=== PATIENT | male | born 1975 | race Caucasian/White ===

== ENCOUNTER 2016-11-10 13:30 | Emergency (ER) | payer MEDICAID ==
[~2016-11-10] VITALS: Ht 170.2 cm; Wt 105.0 kg
[~2016-11-10 13:30] MED LIST: ALBUAER3 INH; PROMSYP3 PO; WHEEMIS3
[2016-11-10 13:40] VITALS: BP 138/85; PULSE 92; RESP 16; TEMP 98; O2SAT 98
[2016-11-10] MEDS ORDERED: XANA2TAB2 PO (14:03)
--- NOTE | 2016-11-10 14:26 | PD ---
HPI Chief Complaint: Fall Time Seen by Provider: 14:10 Travel History International Travel<30 days: No Contact w/Intl Traveler<30days: No Traveled to known affect area: No History of Present Illness HPI This patient had a fall last night at 9 PM. He was trying to step over his dog and tripped and fell. He hit the back of his head but he denies head or neck pain. No LOC. Takes no blood thinners. He complains of injury to his right buttock as well as his left ankle and right foot. His ankle and foot are swollen and he is worse with weightbearing. Duration 17 hours. Symptoms severity is moderate. No alleviating factors PFSH Past Medical History Bipolar Disorder: Yes Influenza Vaccination: No Past Surgical History Surgical History: No Previous Surgery Social History Alcohol Use: No Tobacco Use: Yes (occasional cigars ) Substance Use: No Allergies-Medications (Allergen,Severity, Reaction): Coded Allergies: No Known Allergies (Unverified , 10/05/16) Reported Meds & Prescriptions Reported Meds & Active Scripts Active Walker/Adult/Folding (Device) 1 Mis Mis 1 Ea .ROUTE DIRECTED Percocet (Oxycodone-Acetaminophen) 5-325 mg Tab 1 Tab PO Q6H PRN Reported Xanax (Alprazolam) 2 Mg Tab 2 Mg PO Q8H PRN Review of Systems General / Constitutional: No: Fever Eyes: No: Visual changes HENT: No: Headaches Cardiovascular: No: Chest Pain or Discomfort Respiratory: No: Shortness of Breath Gastrointestinal: No: Abdominal Pain Genitourinary: No: Dysuria Musculoskeletal: Positive: Pain Skin: No Rash Neurologic: No: Weakness Psychiatric: No: Depression Endocrine: No: Polydipsia Hematologic/Lymphatic: No: Easy Bruising Physical Exam Narrative GENERAL: Well-nourished, well-developed patient with bilateral foot/ankle pain. SKIN: Focused skin assessment reveals no rash and nodules. Skin is Warm and dry. HEAD: Has abrasion to the occiput. Normocephalic. EYES: Pupils equal and round. No scleral icterus. No injection or drainage. ENT: No nasal bleeding or discharge. Mucous membranes pink and moist. NECK: Trachea midline. No JVD. CARDIOVASCULAR: Regular rate and rhythm. No murmur appreciated. RESPIRATORY: No accessory muscle use. Clear to auscultation. Breath sounds equal bilaterally. GASTROINTESTINAL: Abdomen soft, non-tender, nondistended. Hepatic and splenic margins not palpable. MUSCULOSKELETAL: Patient has swelling and tenderness over the lateral malleolus on the left side. He has diffuse swelling of the right forefoot as well as ecchymosis near the base of the fifth toe. He is tender in the right buttock region without objective findings. No clubbing. No cyanosis. NEUROLOGICAL: Awake and alert. No obvious cranial nerve deficits. Motor grossly within normal limits. Normal speech. PSYCHIATRIC: Appropriate mood and affect; insight and judgment normal. Data Data Last Documented VS Vital Signs Date Time Temp Pulse Resp B/P Pulse Ox O2 Delivery O2 Flow Rate FiO2 11/10/16 13:40 98.0 92 16 138/85 98 Orders Pelvis, Ap Only (Routine) (11/10/16 ) Foot, Complete ([id number]) (11/10/16 ) Ankle, Complete ([id number]) (11/10/16 ) Ondansetron Inj (Zofran Inj) (11/10/16 16:00) Morphine Inj (Morphine Inj) (11/10/16 16:00) Splint Or Brace Apply/Monitor (11/10/16 15:52) Post Op Boot (Shoe) (11/10/16 ) Splint Or Brace Apply/Monitor (11/10/16 16:02) MDM Medical Decision Making Medical Screen Exam Complete: Yes Emergency Medical Condition: Yes Medical Record Reviewed: Yes Differential Diagnosis Ankle fracture, foot fracture, pelvic fracture Narrative Course I have reviewed the patient's electronic medical record. Regarding his head injury, he is neurologically intact and headache is minor. He is given head injury precautions. I don't feel he needs emergent brain CT. I reviewed his pelvis x-ray is negative I reviewed his ankle x-ray which shows lateral malleolus fracture, essentially nondisplaced I reviewed his foot x-ray shows subluxation of fifth toe but no fracture I gave him morphine and Zofran injection Prescription for pain medicine written Placed him in a left leg Franks splint Gave him a right foot postop shoe and sulma taped the fourth and fifth toe together Wrote him a prescription for walker He doesn't think he could navigate crutches well He needs to follow-up with orthopedist Should ice and elevate both feet No weightbearing on left ankle Diagnosis Primary Impression: Closed left ankle fracture Qualified Code: S82.892A - Closed left ankle fracture, initial encounter Additional Impression: Subluxation of right toe Qualified Code: S93.101A - Subluxation of right toe, initial encounter Additional Instructions: Follow-up with orthopedist Ice and elevate both feet No weightbearing on left ankle Use walker to get around The patient was warned about potential sedation for the medications they will receive on prescription. Med/Other Pt SpecificInfo: Prescription(s) given Scripts Walker/Adult/Folding 1 Mis Mis #1 EA .ROUTE DIRECTED Ref 0 Prov:Trenton Mcnamara MD 11/10/16 Oxycodone-Acetaminophen (Percocet)5-325 mg Tab1 Tab PO Q6H PRN (PAIN) #25 TAB Ref 0 Prov:Trenton Mcnamara MD 11/10/16 Disposition: 01 DISCHARGE HOME Condition: Stable Trenton Mcnamara MD November 10, 2016 14:26
--- NOTE | 2016-11-10 14:58 | RADRPT ---
EXAM DATE/TIME: 11/10/2016 14:41 [facility] COMPARISON: No previous studies available for comparison. INDICATIONS : Left ankle pain after falling today. MEDICAL HISTORY : None. SURGICAL HISTORY : None. ENCOUNTER: Initial ACUITY: 1 day PAIN SCORE: 10/10 LOCATION: Left lateral ankle. FINDINGS: There is oblique minimally displaced fracture of the distal fibula at the distal tibiofibular joint l evel. The visualized hindfoot is intact. CONCLUSION: Minimally displaced oblique distal fibular fracture Trey Yousif MD on November 10, 2016 at 14:55 Board Certified Radiologist. This report was verified electronically.
--- NOTE | 2016-11-10 14:59 | RADRPT ---
EXAM DATE/TIME: 11/10/2016 14:44 [facility] COMPARISON: No previous studies available for comparison. INDICATIONS : Right foot pain after falling today. MEDICAL HISTORY : None. SURGICAL HISTORY : None. ENCOUNTER: Initial ACUITY: 1 day PAIN SCORE: 10/10 LOCATION: Right foot, 5th digit. FINDINGS: There is slight lateral subluxation of the fifth toe interphalangeal joint which may be a chronic or developmental appearance. Correlation recommended. There is a fracture the ankle involving the fibula . Foot is otherwise grossly intact. CONCLUSION: Fifth toe interphalangeal joint subluxation. Ankle fracture. Trey Yousif MD on November 10, 2016 at 14:56 Board Certified Radiologist. This report was verified electronically.
--- NOTE | 2016-11-10 15:00 | RADRPT ---
EXAM DATE/TIME: 11/10/2016 14:51 [facility] COMPARISON: No previous studies available for comparison. INDICATIONS : Right side pelvic pain after falling today. MEDICAL HISTORY : None. SURGICAL HISTORY : None. ENCOUNTER: Initial ACUITY: 1 day PAIN SCORE: 10/10 LOCATION: Right pelvis FINDINGS: There are corticated ossifications adjacent to the superior aspect of the greater trochanter and less er trochanter which do not appear acute traumatic. There is no evidence of hip fracture or dislocatio n. No displaced pelvic fracture is noted. CONCLUSION: No acute bony injury Trey Yousif MD on November 10, 2016 at 14:57 Board Certified Radiologist. This report was verified electronically.
[2016-11-10] MEDS ORDERED: PERC5TAB12 PO (15:58)
[2016-11-10] MEDS ORDERED: ONDANSETRON HCL 4 MG/2 ML VIAL IV ONE (16:00)
[2016-11-10] MEDS ORDERED: MORPHINE SULFATE 4 MG/ML INJ IV PUSH ONE (16:00)
[2016-11-10] MEDS ORDERED: WALKER/ADULT/FO1 MIS (16:02)
== END 2016-11-10 16:41 | disposition home or self-care (01) ==
LOC: NEPD 13:30
DX: S82.892A Other fracture of left lower leg, initial encounter for closed fracture (principal); S93.134A Subluxation of interphalangeal joint of right lesser toe(s), initial encounter; W01.0XXA Fall on same level from slipping, tripping and stumbling without subsequent striking against object, initial encounter
CPT/HCPCS: 29515; 72170; 73610; 73630; 96374; 96375; 99283; J2270; J2405; L3260